=== PATIENT | female | born 1945 | race Caucasian/White ===

== ENCOUNTER 2024-05-11 10:57 | Emergency (ER) | payer OTHER ==
[2024-05-11] MEDS ORDERED: Iopamidol 370 76% 100 ML VIAL ONE (11:24)
[2024-05-11 11:48] LABS: #Basophils 0.1 thou/uL (0.0-0.2); #Eosinophils 0.2 thou/uL (0.0-0.7); #Monocytes 0.5 thou/uL (0.11-0.59); #Neutrophils 3.5 thou/uL (1.40-6.50); %Basophils 1.2 % (0.0-1.0); %Eosinophils 3.2 % (0.0-10.0); %Monocytes 9.6 % (0.0-10.0); Hematocrit 49.7 % (36.0-47.0); Hemoglobin 16.3 g/dL (12.0-16.0); Mean Corpuscular HGB CONC 32.7 g/dL (32.0-36.0); Mean Corpuscular Hemoglobin 30.1 pg (27.0-31.0); Mean Corpuscular Volume 92.1 fl (78.0-98.0); Mean Platelet Volume 7.6 fL (7.4-10.4); Platelet Count 162 10x3/uL (130-400); RBC Distribution Width 12.5 % (11.5-14.5); White Blood Cell (WBC) Count 5.2 10x3/uL (4.8-10.8)
[2024-05-11 12:13] LABS: ALT (SGPT) 17 U/L (8-55); AST (SGOT) 14 U/L (5-34); Albumin 3.3 g/dL (3.4-4.8); Alkaline Phosphatase 94 U/L (40-110); Anion Gap 14 mmol/L (10-20); BUN (Urea Nitrogen) 9 mg/dL (9.8-20.1); Bilirubin, Total 0.5 mg/dL (0.2-1.2); Calc. Creatinine Clearance 0 mL/min (70-130); Calcium 9.5 mg/dL (7.8-10.44); Carbon Dioxide 27 mmol/L (23-31); Chloride 103 mmol/L (98-107); Estimated GFR 82; Globulin 3.4 g/dL (2.4-3.5); Glucose 102 mg/dL (83-110); Potassium 3.8 mmol/L (3.5-5.1); Protein, Total 6.7 g/dL (5.8-8.1); Sodium 140 mmol/L (136-145); Troponin I 0.055 ng/mL (< 0.028)
[2024-05-11] MEDS ORDERED: methylPREDNISolone Sod Succ/PF 125 MG/2 ML VIAL ONE (15:19)
[2024-05-11] MEDS ORDERED: Ipratropium/Albuterol 3 ML NEB ONE (15:19)
[2024-05-11] MEDS ORDERED: Furosemide 40 MG (4 mL) VIAL ONE (16:23)
[2024-05-11] MEDS ORDERED: Aspirin Chewable 81 MG TAB ONE (16:23)
[2024-05-11] MEDS ORDERED: Sodium Chloride 0.9% 100 ML ONE (16:24)
[2024-05-11] MEDS ORDERED: cefTRIAXone (ROCEPHIN) 1 GM VIAL ONE (16:24)
== END 2024-05-11 18:20 | disposition home or self-care (01) ==
LOC: BURERS 10:57
DX: I21.4 Non-ST elevation (NSTEMI) myocardial infarction (principal); L03.116 Cellulitis of left lower limb; L03.115 Cellulitis of right lower limb; J44.1 Chronic obstructive pulmonary disease with (acute) exacerbation; R09.02 Hypoxemia; F17.210 Nicotine dependence, cigarettes, uncomplicated; I50.9 Heart failure, unspecified
CPT/HCPCS: 71045; 71275; 80053; 83880; 84484; 85025; 93005; J0696; J1940; J2919; 36415; 96365; 96375; J7620; Q9967

== ENCOUNTER 2025-04-01 10:28 | Emergency (ER) | payer MEDICARE, OTHER | END 2025-04-01 10:51 | disposition home or self-care (01) | LOC: BURERS 10:28 | DX: S81.801A Unspecified open wound, right lower leg, initial encounter (principal); L03.115 Cellulitis of right lower limb; F17.210 Nicotine dependence, cigarettes, uncomplicated; W19.XXXA Unspecified fall, initial encounter | CPT/HCPCS: 99283 ==